=== PATIENT | female | born 1980 | race Caucasian/White ===

== ENCOUNTER 2018-01-08 10:07 | Day surgery (SDC) | payer OTHER ==
[~2018-01-08 10:07] MED LIST: CEFAZOLIN 1 GM/50 ML (PMX) 50 ML IVPB; SOD CHLORIDE 0.9% 1,000 ML IV
[2018-01-08 11:35] LABS: ADD MAN DIFF? NO
[2018-01-08 11:43] LABS: BASOPHIL # 0.1 10^3/ul (0.0-0.1); BASOPHILS % 1.8 % (0.0-2.0); EOSINOPHILS # 0.4 10^3/ul (0.0-0.5); EOSINOPHILS % 8.8 % (0.0-7.0); HEMATOCRIT 35.1 % (37.0-47.0); HEMOGLOBIN 11.6 g/dl (12.0-16.0); LYMPHOCYTES # 1.4 10^3/ul (0.8-2.9); LYMPHOCYTES % 31.6 % (15.0-51.0); MEAN CORPUSCULAR VOLUME 90.7 fl (82.0-101.0); MEAN PLATELET VOLUME 11.1 fl (7.4-10.4); MONOCYTE # 0.4 10^3/ul (0.3-0.9); MONOCYTES % 9.5 % (0.0-11.0); NEUTROPHIL # 2.1 10^3/ul (1.6-7.5); NEUTROPHILS % 48.1 % (39.0-77.0); PLATELET COUNT 248 10^3/UL (140-415); RED BLOOD COUNT 3.87 10^6/ul (4.20-5.40); RED CELL DISTRIBUTION WIDTH 12.4 % (11.5-14.5)
[2018-01-08 12:05] LABS: INR 0.95; PROTIME 12.8 Sec (11.9-14.9)
[2018-01-08 12:10] LABS: ALANINE AMINOTRANSFERASE 28 IU/L (13-69); ALBUMIN 3.8 g/dl (3.3-4.9); ALBUMIN/GLOBULIN RATIO 1.31; ALKALINE PHOSPHATASE 42 IU/L (42-121); ANION GAP 14 (8-16); ASPARTATE AMINO TRANSFERASE 25 IU/L (15-46); BILIRUBIN,INDIRECT 0.2 mg/dl (0-1.1); BILIRUBIN,TOTAL 0.2 mg/dl (0.2-1.3); BLOOD UREA NITROGEN 7 mg/dl (7-20); CALCIUM 9.1 mg/dl (8.4-10.2); CARBON DIOXIDE 26 mmol/L (21-31); CHLORIDE 107 mmol/L (97-110); CREATININE 0.63 mg/dl (0.44-1.00); GLUCOSE 86 mg/dl (70-220); SODIUM 143 mmol/L (135-144); TOTAL PROTEIN 6.7 g/dl (6.1-8.1)
[2018-01-08 12:19] LABS: HOLD TRANSMISSIONS 1
[2018-01-08 12:22] LABS: WHITE BLOOD COUNT 4.4 10^3/ul (4.8-10.8)
[2018-01-08] MEDS ORDERED: OXYCODONE/ACETAMINOPHEN (5/325) TAB PO ×2 (12:30)
[2018-01-08] MEDS ORDERED: FENTAnyl 50 MCG/ML VIAL IV ×2 (12:30)
[2018-01-08] MEDS ORDERED: ONDANSETRON 4 MG INJ IV (12:30)
[2018-01-08] MEDS ORDERED: HYDROmorphONE 1 MG/5 ML IV SYRINGE IV ×3 (12:30)
[2018-01-08] MEDS ORDERED: HYDROCODONE/APAP (5/325) TAB PO ×2 (14:00)
[2018-01-08] MEDS ORDERED: MIDAZOLAM 1 MG/ML 2 ML INJ (14:02)
[2018-01-08] MEDS ORDERED: FENTAnyl 50 MCG/ML VIAL (14:02)
[2018-01-08] MEDS ORDERED: LIDOCAINE 2% (SDV) 5 ML INJ (14:06)
[2018-01-08] MEDS ORDERED: PROPOFOL 40 ML (14:06)
[2018-01-08] MEDS ORDERED: CEFAZOLIN 1 GM INJ (14:32)
[2018-01-08] MEDS: BUPIVACAINE 0.25%/EPI (MDV) 50 ML VIAL INJ (14:41)
[2018-01-08] MEDS: LIDOCAINE 1% (MPF) 30 ML INJ (14:41)
[2018-01-08] MEDS ORDERED: ONDANSETRON 4 MG INJ (14:55)
== END 2018-01-08 17:05 | disposition home or self-care (01) ==
LOC: SDS 10:07
DX: L72.0 Epidermal cyst (principal)
CPT/HCPCS: 14000; 80053; 85025; 85610; 85730; 88304